=== PATIENT | male | born 1985 | race Two or more races ===

== ENCOUNTER 2019-12-10 12:07 | Emergency (ER) | payer MEDICAID ==
[~2019-12-10] VITALS: Ht 177.8 cm; Wt 70.3 kg
[2019-12-10 12:15] VITALS: BP 113/72
== END 2019-12-10 14:20 | disposition home or self-care (01) ==
LOC: ER 12:12
DX: J06.9 Acute upper respiratory infection, unspecified (principal)
CPT/HCPCS: 71045-TC

== ENCOUNTER 2020-06-23 16:32 | Emergency (ER) | payer MEDICAID ==
[~2020-06-23] VITALS: Ht 170.2 cm; Wt 68.0 kg
--- NOTE | 2020-06-23 18:03 | NUR ---
COVID19 TEST DONE & SENT TO LAB.
[2020-06-23 18:27] LABS: BASOPHILS # (AUTO) 0.1 /CMM (0.0-0.2); BASOPHILS % (AUTO) 1.3 % (0.0-2.0); HEMATOCRIT 45 % (39-51); HEMOGLOBIN 15.4 g/dL (13.5-17.5); LYMPHOCYTES # (AUTO) 1.3 /CMM (0.8-4.8); LYMPHOCYTES % (AUTO) 11.8 % (20.0-44.0); MEAN CORPUSCULAR HGB CONC 34 g/dl (31.0-36.0); MEAN CORPUSCULAR VOLUME 94 fL (80-96); MONOCYTES # (AUTO) 0.7 /CMM (0.1-1.30); MONOCYTES % (AUTO) 6.3 % (2.0-12.0); NEUTROPHILS # (AUTO) 8.7 /CMM (1.8-8.9); NEUTROPHILS % (AUTO) 80.6 % (43.0-81.0); PLATELET COUNT (AUTO) 199 /CMM (150-450); RED BLOOD CELL COUNT(AUTO) 4.75 MIL/uL (4.5-6.0); WHITE BLOOD COUNT (AUTO) 10.8 K/uL (4.3-11.0)
[2020-06-23] MEDS ORDERED: KETOROLAC TROMETHAMINE INJ 60 MG/2 ML VIAL IM ONE (18:30)
[2020-06-23 18:35] LABS: CALCIUM, SERUM 9.5 mg/dL (8.5-10.1); CARBON DIOXIDE 28 mmol/L (21-32); CHLORIDE 102 mmol/L (98-107); GLUCOSE 116 mg/dL (74-106); POTASSIUM 4.1 mmol/L (3.5-5.1); SODIUM SERUM 138 mmol/L (136-145); UREA NITROGEN, BLOOD 29 mg/dL (7-18)
[2020-06-23 18:41] LABS: ALANINE AMINOTRANSFERASE 28 U/L (12-78); ALBUMIN 4.5 g/dL (3.4-5.0); ALKALINE PHOSPHATASE 61 U/L (46-116); ASPARTATE AMINOTRANSFERASE 12 U/L (15-37); BILIRUBIN,DIRECT 0.1 mg/dL (0.0-0.2); BILIRUBIN,TOTAL 0.5 mg/dL (0.2-1.0); TOTAL PROTEIN, SERUM 7.6 g/dL (6.4-8.2)
[2020-06-23 18:52] LABS: ACETAMINOPHEN < 2 ug/ml (10-30); SALICYLATE 2.2 mg/dL (2.8-20.0)
[2020-06-23] MEDS ORDERED: KETOROLAC TROMETHAMINE INJ 30 MG/ML VIAL ONE (18:59)
[2020-06-23] MEDS ORDERED: IV NS 0.9% 1,000 ML BAG IV ONE (19:00)
[2020-06-23] MEDS ORDERED: KETOROLAC TROMETHAMINE INJ 30 MG/ML VIAL IV ONE (19:00)
[2020-06-23 19:05] LABS: APPEARANCE,URINE Clear (CLEAR); BILIRUBIN,URINE Negative (NEGATIVE); BLOOD, URINE Negative Ery/uL (NEGATIVE); COLOR,URINE Yellow (YELLOW); KETONES,URINE Negative (NEGATIVE); LEUKOCYTE ESTERASE ,URINE Negative (NEGATIVE); NITRITE, URINE Negative (NEGATIVE); PROTEIN,URINE 100 mg/dl (NEGATIVE); UGLUCOSE Negative (NEGATIVE); UROBILINOGEN,URINE 0.2 EU/dL (0.2)
--- NOTE | 2020-06-23 19:21 | NUR ---
CALLED LILIAN LANDA @ [facility] WITH [facility]AN[facility] FOR A FOLLOW UP. WE WILL BE RECIEVING A CALL BACK SHORTLY.
--- NOTE | 2020-06-23 19:39 | NUR ---
"cough x3days I wanted to go to [facility] but they did not accept me since I have been coughing they said I need XR/covid test". PT AAOX4, VSS. RR EVEN & UNLABORED. DENIES CP, SOB, DIZZINESS, N/V AT THIS TIME. PT SEEN & EVAL'D BY HARLEY DAVIS. MEDICATED ORDERED, PT JUWAN WELL. WILL CONT TO MONITOR.
[2020-06-23 20:00] LABS: ALCOHOL, BLOOD < 3 mg/dL (0-0)
--- NOTE | 2020-06-23 20:41 | NUR ---
COVID RESULT: NEGATIVE. MD AWARE
--- NOTE | 2020-06-23 20:57 | NUR ---
CLINICAL FAXED TO [facility] FOR VOLUNTARY PSYCH ADMISSION.
--- NOTE | 2020-06-23 22:21 | NUR ---
PT ACCEPTED AT [facility] [place] PT WILL GO TO UNIT 1 PHONE# FOR REPORT ACCEPTING MD DAILY.
--- NOTE | 2020-06-23 22:23 | NUR ---
CALLED [facility] FOR [place] ETA OF 0130 WAS GIVEN.
--- NOTE | 2020-06-23 22:59 | NUR ---
PT ASLEEP, EASILY AWAKEN BY VERBAL STIMULI. DENIES CP, SOB, DIZZINESS, N/V, LT SHOULDER PAIN. STS " I'M OK ", NAD NOTED AT THIS TIME. AWAITING TRANSPORT TO [facility]. IV removed. Catheter intact and site benign. Pressure and 4x4 applied to site. No bleeding noted.
--- NOTE | 2020-06-24 00:36 | NUR ---
REPORT GIVEN TO JOHAN AT [facility]
[2020-06-24 01:00] VITALS: BP 119/61
--- NOTE | 2020-06-24 01:01 | NUR ---
TRANSPORT AT BEDSIDE REPORT GIVEN TO EMT.
== END 2020-06-24 01:01 ==
LOC: ER 16:38
DX: R45.851 Suicidal ideations (principal); R05 Cough; Z20.828 Contact with and (suspected) exposure to other viral communicable diseases; F19.10 Other psychoactive substance abuse, uncomplicated; F32.9 Major depressive disorder, single episode, unspecified; Z59.0 Homelessness; F17.200 Nicotine dependence, unspecified, uncomplicated
CPT/HCPCS: 36415; 71045; 80048; 80076; 80305; 80307; 80329; 81001; 85025; 87426; 96374; 99285; C9803; G0480; J1885; J7030; 81000-TC

== ENCOUNTER 2022-06-26 22:22 | Emergency (ER) | payer MEDICAID ==
[~2022-06-26] VITALS: Ht 177.8 cm; Wt 74.8 kg
--- NOTE | 2022-06-27 01:32 | NUR ---
BIBS FOR C/O SORE THROAT X FEW DAYS . PATIENT STATES HE IS HAVING S/I, WISHES TO PROCEED WITH VOLUNTARY ADMISSION TO PSYCH FACILITY. BELONGINGS COLLECTED AND PLACED IN LOCKER. PATIENT IN A GOWN AND WANDED BY SECURITY.
--- NOTE | 2022-06-27 01:33 | NUR ---
ER SENIOR GL ACCOUNTANT AT BEDSIDE
--- NOTE | 2022-06-27 01:33 | NUR ---
COVID SWAB DONE AND SENT TO LAB
--- NOTE | 2022-06-27 01:33 | NUR ---
URINE COLLECTED AND SENT TO LAB
--- NOTE | 2022-06-27 01:44 | NUR ---
RAPID STREP DONE AND SENT TO LAB
[2022-06-27 01:49] LABS: BASOPHILS % (AUTO) 0.3 % (0.0-2.0); EOSINOPHILS % (AUTO) 0.6 % (0.0-6.0); HEMATOCRIT 45 % (39-51); HEMOGLOBIN 14.9 g/dL (13.5-17.5); LYMPHOCYTES # (AUTO) 2.6 K/uL (0.8-4.8); LYMPHOCYTES % (AUTO) 50.5 % (20.0-44.0); MEAN CORPUSCULAR HGB CONC 33 g/dl (31.0-36.0); MEAN CORPUSCULAR VOLUME 90 fL (80-96); MONOCYTES # (AUTO) 0.4 K/uL (0.1-1.30); MONOCYTES % (AUTO) 8.7 % (2.0-12.0); NEUTROPHILS # (AUTO) 2.1 K/uL (1.8-8.9); NEUTROPHILS % (AUTO) 39.9 % (43.0-81.0); PLATELET COUNT (AUTO) 174 K/uL (150-450); RED BLOOD CELL COUNT(AUTO) 4.95 MIL/uL (4.5-6.0); WHITE BLOOD COUNT (AUTO) 5.2 K/uL (4.3-11.0)
[2022-06-27 02:27] LABS: BILIRUBIN,URINE NEGATIVE (NEGATIVE); COLOR,URINE YELLOW (YELLOW); LEUKOCYTE ESTERASE ,URINE NEGATIVE (NEGATIVE); NITRITE, URINE NEGATIVE (NEGATIVE); PROTEIN,URINE TRACE mg/dl (NEGATIVE); UGLUCOSE NEGATIVE (NEGATIVE)
[2022-06-27 02:30] LABS: CALCIUM, SERUM 9.3 mg/dL (8.5-10.1); CARBON DIOXIDE 30 mmol/L (21-32); CHLORIDE 101 mmol/L (98-107); GLUCOSE 94 mg/dL (74-106); SODIUM SERUM 138 mmol/L (136-145); UREA NITROGEN, BLOOD 14 mg/dL (7-18)
[2022-06-27 02:34] LABS: ALANINE AMINOTRANSFERASE 28 U/L (12-78); ALBUMIN 4.4 g/dL (3.4-5.0); ALCOHOL, BLOOD < 3 mg/dL (0-0); ALKALINE PHOSPHATASE 96 U/L (46-116); ASPARTATE AMINOTRANSFERASE 16 U/L (15-37); BILIRUBIN,DIRECT 0.1 mg/dL (0.0-0.2); BILIRUBIN,TOTAL 0.3 mg/dL (0.2-1.0); TOTAL PROTEIN, SERUM 8.5 g/dL (6.4-8.2)
[2022-06-27 02:35] LABS: ACETAMINOPHEN < 2 ug/ml (10-30)
--- NOTE | 2022-06-27 04:44 | NUR ---
FACESHEET AND CLINICALS FAXED TO [facility]./
[2022-06-27] MEDS ORDERED: ONDANSETRON HCL/PF - ER 4 MG/2 ML VIAL IM ONE (06:00)
[2022-06-27] MEDS ORDERED: ONDANSETRON HCL/PF 4 MG/2 ML VIAL ONE (06:00)
--- NOTE | 2022-06-27 06:54 | NUR ---
S/W VALARIE , THEY ARE UNABLE TO ACCEPT PT AT [facility] OR [facility] DUE TO PT BEING COVID POSITIVE.
--- NOTE | 2022-06-27 07:20 | NUR ---
PT STATED THAT HE DOES NOT HAVE ANY SUICIDAL THOUGHTS AT THIS TIME, STATED THAT HE WANTS RESOURCES TO GO TO A REHAB PROGRAM AND THAT HE WILL LOOK INTO IT AFTER TESTING NEGATIVE.
[2022-06-27 07:23] VITALS: BP 132/91
--- NOTE | 2022-06-27 07:23 | NUR ---
Patient discharged to home in stable condition. Written and verbal after care instructions given. Patient verbalizes understanding of instruction. pt ambulatory with a steady gait
== END 2022-06-27 07:38 | disposition home or self-care (01) ==
LOC: ER 22:28
DX: U07.1 COVID-19 (principal); F32.A Depression, unspecified; R45.851 Suicidal ideations
CPT/HCPCS: 99285; 96372; 85025; 80048; 87070; 80076; 81003; 36415; 87880; 87426; 80143; 80320; 80307; J2405; C9803; 86403-TC; G0480